=== PATIENT | male | born 1955 | race Caucasian/White ===

== ENCOUNTER 2019-09-06 21:15 | Emergency (ER) | payer MEDICARE, SELFPAY ==
[2019-09-06 21:21] VITALS: BP 156/76; PULSE 94; RESP 20; TEMP 36.7; O2SAT 93; BMI 39.1
--- NOTE | 2019-09-06 22:12 | W.ED.MALEGU ---
HPI - Male Genitourinary General: Chief complaint: Urogenital-Male Stated complaint: poss kidney infection Time Seen by Provider: 09/06/19 22:06 Source: patient Mode of arrival: ambulatory Limitations: no limitations History of Present Illness: HPI Narrative: Patient is a 64-year-old male who presents to ED today complaining that he believes he might have a kidney infection. He has been experiencing dysuria and urinary urgency over the past day. He states yesterday he began noticing acute onset left flank pain. He states he has been taking Azo and fish antibiotics for his symptoms. He does not have a history of kidney stones. He does tell me previously he has had a kidney infection. He has not been running fevers. He does not describe any nausea, vomiting, changes in bowel movements. MD Complaint: dysuria and other (flank pain) Onset (ago): day(s) (x yesterday ) Duration: constant Location: left flank Severity: moderate Quality: sharp and stabbing Relieving factors: none Exacerbating factors: urination Associated symptoms: Reports no associated symptoms and dysuria; Deny nausea, urinary incontinence or vomiting Review of Systems Const: Denies: fever, chills, body aches, fatigue or malaise Card: Denies: chest pain Resp: Denies: shortness of breath GI: Reports: abdominal pain (reports pain in L flank/back wraps around into abdomen ); Denies: nausea, vomiting or diarrhea : Reports: flank pain, painful urination and urinary urgency; Denies: difficulty urinating, urinary frequency, urinary hesitancy, urinary dribbling, difficulty starting urination, nighttime urination, decreased urine ouput, urinary incontinence, genital lesion, penile discharge or scrotal swelling Musc: Reports: back pain (L flank); Denies: neck pain Skin/Breast: Denies: rash, new lesion or changes in skin color Neuro: Denies: headache, numbness in extremities, weakness in extremities or changes in sensation PFSH ED PFSH: Social History Smoking and tobacco status: former smoker Physical Exam Const: COMMON NORMALS: no apparent distress, oriented x3, no limitations and alert NUTRITIONAL APPEARANCE: obese Resp: COMMON NORMALS: normal respiratory effort and clear to auscultation bilaterally AUSCULTATION: clear to auscultation bilaterally Cardio: COMMON NORMALS: regular rate and regular rhythm RATE: regular rate RHYTHM: regular rhythm GI: COMMON NORMALS: normal to inspection, nondistended, normoactive bowel sounds, soft to palpation, no hepatosplenomegaly and no masses PALPATION: Yes soft, Yes tender (L lower abdomen-reports wraps around from L flank/lower back) and Yes no hepatosplenomegaly : BLADDER/KIDNEY EXAM: Yes CVA tenderness on the left Back/Pelvis: GENERAL BACK: Yes CVA tenderness Extremity: COMMON NORMALS: normal to inspection Neuro: COMMON NORMALS: oriented x3 SENSORIUM/ORIENTATION: Yes alert Skin: COMMON NORMALS: no rashes or lesions noted GENERAL SKIN EXAM: no rashes or lesions noted Course Vital Signs: Vital signs: Vital Signs Temperature 98.1 F 09/06/19 21:21 Pulse Rate 88 09/06/19 23:29 Respiratory Rate 17 09/06/19 23:29 Blood Pressure 142/77 09/06/19 23:29 Pulse Oximetry 96 09/06/19 23:29 MDM - Male MDM Narrative: Medical decision making narrative: pt feels much better after IV meds; CT scan showing 5mm stone at L UVJ; UA is inhibited due to color interference from his AZO; will go ahead and err on the side of caution and place him on Cipro; will give urine strainer, pain meds/nausea meds/flomax, and have him follow up with urology; return to ED precautions given Lab Data: Labs: Lab Results 09/06/19 09/06/19 09/06/19 Range/Units 22:40 22:40 22:40 WBC 15.8 H (4.0-10.0) 10^3/ uL RBC 5.09 (4.1-5.3) 10^6/u L Hgb 14.1 (11.7-16.6) g/dL Hct 43.6 (42.0-52.0) % MCV 85.7 (80-94) fL MCH 27.7 L (28.0-34.0) pg MCHC 32.3 (30.0-36.0) g/dL RDW 13.7 (12.1-15.1) % Plt Count 185 (130-400) 10^3/c mm MPV 10.1 (7.4-10.4) fL Neut % (Auto) 82.2 % Lymph % (Auto) 7.7 % [place] % (Auto) 9.2 % Eos % (Auto) 0.1 % Baso % (Auto) 0.3 % Neut # (Auto) 13.0 H (1.8-7.7) 10^3/u L Lymph # (Auto) 1.2 (0.8-4.8) 10^3/u L [place] # (Auto) 1.5 H (0.2-0.9) 10^3/u L Eos # (Auto) 0.0 (0.0-0.8) 10^3/u L Baso # (Auto) 0.0 (0.0-0.1) 10^3/u L Nucleated RBC % (a uto) 0 % Nucleated RBCs # 0.0 /100WBC Sodium 137 (136-145) mmol/L Potassium 3.8 (3.5-5.1) mmol/L Chloride 100 (98-107) mmol/L Carbon Dioxide 24 (22-29) mmol/L Anion Gap 16.8 (5-19) BUN 18 (8-23) mg/dL Creatinine 1.2 (0.7-1.2) mg/dL GFR Calculation 61.1 L (90-130) mL/min Glucose 144 H (65-115) mg/dL Calculated Osmolal ity 283 L (285-295) mOsm/k g Calcium 9.5 (8.5-10.5) mg/dL Total Bilirubin 2.3 H (0.15-1.2) mg/dL AST 34 (0-40) U/L ALT 40 (0-41) U/L Alkaline Phosphata se 117 (40-130) IU/L Total Protein 7.1 (6.6-8.7) g/dL Albumin 4.1 (3.5-5.2) g/dL Globulin 3.0 (1.3-4.6) g/dL Urine Color [place] (Yellow) Urine Appearance Clear (CLEAR) Urine pH 5 (5-7) Ur Specific Gravit y 1.015 (1.005-1.030) Urine Protein Not tested (Negative) Urine Glucose (UA) Not tested (Normal) Urine Ketones Not tested H (Negative) Urine Blood Not tested A (Negative) Urine Nitrate Not tested A (Negative) Urine Bilirubin Not tested (NEGATIVE) Urine Urobilinogen Not tested A (Negative) mg/dL Ur Leukocyte Otilia ase Not tested A (Negative) Urine RBC 0-4 H (0-2) /hpf Urine WBC 25-40 H (0-5) /hpf Ur Squamous Epith Cells 0-4 H (0-5) Urine Bacteria 1+ H (NONE) Imaging Data: CT Abd/Pel: Radiologist's impression: [address] [address] [address] Scan Report Signed Patient: Olayinka Lee Unit #: [id number] : [id number] Age/Sex: 64 / M ADM Date: 09/06/19 Loc: ER Room/Bed: Attending Dr: Ordering Provider/Ordering MD: Mulu Sawyer Date of Service: 09/06/19 Procedure(s): CT kidney stone 28738 Accession Number(s): [id number] Report Number: [id number] PROCEDURE INFORMATION: Exam: CT Abdomen And Pelvis Without Contrast Exam date and time: 09/06/2019 10:43 PM Age: 64 years old Clinical indication: Abdominal pain; Flank; Left; Additional info: L flank pain TECHNIQUE: Imaging protocol: Computed tomography of the abdomen and pelvis without contrast. Total DLP: 1917.03 mGy-cm Radiation optimization: All CT scans at this facility use at least one of these dose optimization techniques: automated exposure control; mA and/or kV adjustment per patient size (includes targeted exams where dose is matched to clinical indication); or iterative reconstruction. COMPARISON: No relevant prior studies available. FINDINGS: Lungs: Mild left lower lobe atelectasis. Liver: Diffuse fatty infiltration of the liver. Gallbladder and bile ducts: Normal. No calcified stones. No ductal dilation. Pancreas: Normal. No ductal dilation. Spleen: Normal. No splenomegaly. Adrenals: Normal. No mass. Kidneys and ureters: 5 mm calculus at the left ureterovesical junction. Mild left hydronephrosis and perinephric stranding. The right kidney is normal. Stomach and bowel: Mild diverticulosis of the descending colon. No diverticulitis. Appendix: No evidence of appendicitis. Intraperitoneal space: Unremarkable. No free air. No significant fluid collection. Vasculature: Unremarkable. No abdominal aortic aneurysm. Lymph nodes: Unremarkable. No enlarged lymph nodes. Bladder: The urinary bladder is decompressed with mild wall thickening measuring up to 8 mm. Reproductive: Coarse calcifications in a small prostate. Bones/joints: Unremarkable. No acute fracture. Soft tissues: Fat containing left inguinal hernia. CT/CT kidney stone 30102 IMPRESSION: 1. 5 mm calculus at the left ureterovesical junction with mild left hydronephrosis. Radiation Dose CTDIVOL = (mGy): DLP = 1917.03 (mGy-cm) Dictated By: Martinez Hanks Signed By: Martinez Hanks Signed Date/Time: 09/06/192256 DD/ 55 Discharge Plan Discharge Patient Disposition: Home, Self-Care Clinical Impression: Calculus of distal left ureter Condition: Stable Prescriptions: New hydrocodone-acetaminophen 5-325 mg tablet 1 tab PO Q4H PRN (Reason: pain) Qty: 15 RF: 0 Zofran 4 mg tablet 4 mg PO Q6H PRN (Reason: nausea and vomiting) Qty: 14 RF: 0 Cipro 500 mg tablet 500 mg PO BID 7 Days Qty: 14 RF: 0 Flomax 0.4 mg capsule 0.4 mg PO DAILY Qty: 14 RF: 0 Discharge Orders: Discharge Order (Routine); Ordered 09/06/19 Ordered By: Mulu Sawyer Referrals: Hermelindo Bernstein MD [Physician] - Galileo Cavanaugh DO [Family Provider] - Discharge Diet: Usual diet Discharge Activity: Resume usual activity Patient Instructions: Kidney Stones, Kidney Stones (ED), How to Strain Your Urine (ED) Activity Restrictions/Additional Instructions: As discussed push fluids as much as possible. Strain your urine and bring stone with you to urology follow-up. Case management should contact you shortly to set you up with this appointment. Return to the emergency department immediately for worsening pain, inability to hold down your medications, repetitive nausea/vomiting, fevers greater than 100.4, generally feeling ill, or any other concerns you may have. Discharge Date/Time: 09/06/19 23:30 Coding Level of Care Code ED Coal Cutter for Chg Fwd Exam Detailed
--- NOTE | 2019-09-06 22:19 | CTR_ITS ---
PROCEDURE INFORMATION: Exam: CT Abdomen And Pelvis Without Contrast Exam date and time: 09/06/2019 10:43 PM Age: 64 years old Clinical indication: Abdominal pain; Flank; Left; Additional info: L flank pain TECHNIQUE: Imaging protocol: Computed tomography of the abdomen and pelvis without contrast. Total DLP: 1917.03 mGy-cm Radiation optimization: All CT scans at this facility use at least one of these dose optimization techniques: automated exposure control; mA and/or kV adjustment per patient size (includes targeted exams where dose is matched to clinical indication); or iterative reconstruction. COMPARISON: No relevant prior studies available. FINDINGS: Lungs: Mild left lower lobe atelectasis. Liver: Diffuse fatty infiltration of the liver. Gallbladder and bile ducts: Normal. No calcified stones. No ductal dilation. Pancreas: Normal. No ductal dilation. Spleen: Normal. No splenomegaly. Adrenals: Normal. No mass. Kidneys and ureters: 5 mm calculus at the left ureterovesical junction. Mild left hydronephrosis and perinephric stranding. The right kidney is normal. Stomach and bowel: Mild diverticulosis of the descending colon. No diverticulitis. Appendix: No evidence of appendicitis. Intraperitoneal space: Unremarkable. No free air. No significant fluid collection. Vasculature: Unremarkable. No abdominal aortic aneurysm. Lymph nodes: Unremarkable. No enlarged lymph nodes. Bladder: The urinary bladder is decompressed with mild wall thickening measuring up to 8 mm. Reproductive: Coarse calcifications in a small prostate. Bones/joints: Unremarkable. No acute fracture. Soft tissues: Fat containing left inguinal hernia. CT/CT kidney stone 33804 IMPRESSION: 1. 5 mm calculus at the left ureterovesical junction with mild left hydronephrosis. Radiation Dose CTDIVOL = (mGy): DLP = 1917.03 (mGy-cm)
[2019-09-06 22:45] LABS: Basophils % 0.3 %; Eosinophils % 0.1 %; Hematocrit 43.6 % (42.0-52.0); Hemoglobin 14.1 g/dL (11.7-16.6); Lymphocytes # 1.2 10^3/uL (0.8-4.8); Lymphocytes % 7.7 %; Mean Corpuscular HGB Conc 32.3 g/dL (30.0-36.0); Mean Corpuscular Hemoglobin 27.7 pg (28.0-34.0); Mean Corpuscular Volume 85.7 fL (80-94); Mean Platelet Volume 10.1 fL (7.4-10.4); Monocytes # 1.5 10^3/uL (0.2-0.9); Monocytes % 9.2 %; Neutrophils % 82.2 %; Nucleated Red Blood Cells % 0 %; Platelet Count 185 10^3/cmm (130-400); Red Blood Count 5.09 10^6/uL (4.1-5.3); Red Cell Distribution Width 13.7 % (12.1-15.1); White Blood Count 15.8 10^3/uL (4.0-10.0)
[2019-09-06] MEDS: ondansetron 2 mg/ML SDV 2 mL 4 MG IVP (22:47)
[2019-09-06] MEDS: ketorolac 60 mg/2 mL INJ 30 MG IVP (22:47)
[2019-09-06] MEDS: sodium chloride 0.9% 1,000 ML 999 ML IV (22:49)
[2019-09-06 23:03] VITALS: RESP 17; O2SAT 91
[2019-09-06] MEDS: morphine 4 mg/mL SDV 1 mL IVP (23:03)
[2019-09-06 23:07] LABS: Bilirubin Urine Not Tested (NEGATIVE); Blood Urine Not Tested (Negative); Glucose Urine UA Not Tested (Normal); Ketones Urine Not Tested (Negative); Nitrate Urine Not Tested (Negative); Protein Urine Not Tested (Negative); Specific Gravity, Urine 1.015 (1.005-1.030); Urine Appearance Clear (CLEAR); Urine Color Orange (Yellow); Urobilinogen Urine Not Tested mg/dL (Negative); pH Urine 5 (5-7)
[2019-09-06 23:08] LABS: Leukocyte Esterase Urine Not Tested (Negative)
[2019-09-06 23:09] LABS: Bacteria Urine 1+; RBC Urine 0-4 /hpf (0-2); Squamous Epithelial Cell Urine 0-4 (0-5); WBC Urine 25-40 /hpf (0-5)
[2019-09-06 23:12] LABS: Alanine Aminotransferase 40 U/L (0-41); Albumin Level 4.1 g/dL (3.5-5.2); Alkaline Phosphatase 117 IU/L (40-130); Anion Gap 16.8 (5-19); Aspartate Amino Transferase 34 U/L (0-40); Blood Urea Nitrogen 18 mg/dL (8-23); Calcium 9.5 mg/dL (8.5-10.5); Carbon Dioxide 24 mmol/L (22-29); Chloride 100 mmol/L (98-107); Glomerular Filtration Rate 61.1 mL/min (90-130); Glucose 144 mg/dL (65-115); Osmolality Calculated 283 mOsm/kg (285-295); Potassium 3.8 mmol/L (3.5-5.1); Sodium 137 mmol/L (136-145); Total Bilirubin 2.3 mg/dL (0.15-1.2); Total Protein 7.1 g/dL (6.6-8.7)
[2019-09-06 23:29] VITALS: BP 142/77; PULSE 88; RESP 17; O2SAT 96
--- NOTE | 2019-09-07 11:22 | DCPLANNER ---
manager utilization management had message to schedule a follow up appointment for patient with Dr. Bernstein. manager utilization management called the office of Dr. Bernstein, spoke with Vee, gave clinic patients information. manager utilization management was told that patients information would be printed and given to Mariana for review. Clinic will call patient with appointment information. manager utilization management will call for appointment information.
--- NOTE | 2019-09-08 09:21 | DCPLANNER ---
Patient had an appointment scheduled for 09.08.[address] Bernstein, patient did attend the appointment.
== END 2019-09-06 23:30 | disposition home or self-care (01) ==
PROVIDERS: Emergency Medicine; Emergency Provider Physician Assistant; Family Provider Electrodiagnostic Medicine
DX: N20.1 Calculus of ureter (principal); Z87.891 Personal history of nicotine dependence
CPT/HCPCS: 12345; 36415; 74176; 80053; 81001; 85025; 96361; 96374; 96375; 99282; 99284; J1885; J2270; J2405; J7030

== ENCOUNTER 2019-09-08 07:33 | Outpatient (CLI) | payer MEDICARE, SELFPAY ==
--- NOTE | 2019-09-07 13:18 | XR_ITS ---
WS: [id number] ABDOMEN KUB CLINICAL INFORMATION: Renal/ureteral calculi. COMPARISON: CT September 06, 2019 FINDINGS: 4 mm calculus at the left UVJ seen on the recent CT likely persistent today in the left pelvis. Numer ous pelvic phleboliths. XR/XR KUB 83009 Impression: 4 mm calculus at the left UVJ suspected to be persistent in the left pelvis isabell alicea
== END 2019-09-08 07:34 | disposition home or self-care (01) ==
LOC: RAD 07:39
PROVIDERS: Family Provider Electrodiagnostic Medicine; PCP Electrodiagnostic Medicine; Visit Provider Urology
DX: N20.1 Calculus of ureter (principal)
CPT/HCPCS: 74018; 81001

== ENCOUNTER 2019-09-22 08:15 | Outpatient (CLI) | payer MEDICARE, SELFPAY ==
--- NOTE | 2019-09-22 08:15 | XR_ITS ---
WS: [id number] XR KUB [id number] REASON FOR EXAM: ureteral calculus FINDINGS: In the left side of the bladder area is a calcified densities suggesting a small stone. The left kidney appears to be slightly denser of the right suggesting possibility of some degree of h ydronephrosis. There is no definite stones seen in the left kidney. XR/XR KUB 79021 IMPRESSION: Small stone appears to be evident in the bladder The left kidney is denser than the right suggesting low-grade hydronephrosis.
== END 2019-09-22 08:16 | disposition home or self-care (01) ==
LOC: RAD 08:19
PROVIDERS: Family Provider Electrodiagnostic Medicine; PCP Electrodiagnostic Medicine; Visit Provider Urology
DX: N20.1 Calculus of ureter (principal)
CPT/HCPCS: 74018; 81001; 82365

== ENCOUNTER 2021-03-08 20:03 | Emergency (ER) | payer MEDICARE, SELFPAY ==
[2021-03-08 20:59] VITALS: BP 172/73; PULSE 68; RESP 18; TEMP 36.7; O2SAT 98; BMI 37.6
--- NOTE | 2021-03-08 21:06 | XRR_ITS ---
PROCEDURE INFORMATION: Exam: XR Right Hand Exam date and time: 03/08/2021 9:06 PM Age: 65 years old Clinical indication: Patient HX: Right hand fifth digit pain; Additional info: Smashed pinky finger TECHNIQUE: Imaging protocol: XR Right hand. Views: 3 or more views. COMPARISON: No relevant prior studies available. FINDINGS: Bones/joints: No acute fracture or dislocation. Soft tissues: No radiopaque or radiolucent foreign body. XR/XR hand RT min 3V* [id number] IMPRESSION: 1. No acute fracture or dislocation. 2. No radiopaque or radiolucent foreign body. Radiation Dose CTDIVOL = (mGy): DLP = (mGy-cm)
[2021-03-08 21:30] VITALS: PULSE 79
--- NOTE | 2021-03-08 23:14 | ED_ITS ---
HPI - Extremity Problem General: Chief complaint: Extremity Injury, Upper Stated complaint: R Pinky Finger Injury\Laceration Time Seen by Provider: 03/08/21 23:02 History of Present Illness: HPI Narrative: Lacerated tip of pinky finger while working with a post. Complaint: extremity pain Onset (ago): hour(s) Pain Consistency: constant Location: right and upper extremity Severity scale (1-10): 3 Quality: aching Radiation: none Associated symptoms: Deny chest pain, fever(s) or rash Review of Systems Const: Denies: fever(s), chills or body aches Eyes: Denies: change in vision or blurry vision ENMT: Denies: throat pain or nasal congestion Card: Denies: chest pain or dyspnea on exertion Resp: Denies: dyspnea, productive cough or non-productive cough GI: Denies: abdominal pain, nausea or vomiting : Denies: difficulty urinating Musc: Denies: extremity pain Skin/Breast: Reports: other (Laceration to right pinky finger occurred today.); Denies: rash Neuro: Denies: headache(s) Psych: Denies: anxiety or depression Parish/Lymph: Denies: easy bruising PFS ED PFSH: Medical History (Updated 03/08/21 @ 23:51 by LINO Valles) Chronic back pain Hypertension Urethral stricture Surgical History H/O hernia repair H/O removal of cyst History of facial surgery Family History Father , 60 Diabetes Hypertension Stroke Mother No problems noted. Social History Smoking and tobacco status: former smoker Alcohol intake: current Alcohol intake frequency: holidays/special occasions only Marital status: Current occupational status: disabled History of recent travel: No Physical Exam Const: COMMON NORMALS: no acute distress Psych: COMMON NORMALS: mental status grossly normal Skin: OTHER: Stellate laceration to pad of right pinky finger. Tetanus is up-to-date. Procedures Laceration Laceration 1: Site: hand Side (If applicable): right Size (cm): 2 Description: flap, irregular and contaminated Depth: simple, single layer Local Anesthetic: lidocaine 1% Amount of anesthesia used (mL): 3 Pre-repair: wound explored, irrigated extensively and deep structures intact Skin layer closed with: other (Ethilon) Size (cm): 4-0 Number of sutures: 8 Technique: simple, interrupted Course Vital Signs: Vital signs: Vital Signs Temperature 98.1 F 03/08/21 20:59 Pulse Rate 68 03/08/21 20:59 Respiratory Rate 18 03/08/21 20:59 Blood Pressure 172/73 03/08/21 20:59 Pulse Oximetry 98 03/08/21 20:59 Discharge Plan Discharge Patient Disposition: Home Clinical Impression: Laceration of finger Qualifiers: Encounter type: initial encounter Finger: little finger Damage to nail status: without damage Foreign body presence: without foreign body Laterality: right Qualified Code(s): S61.216A - Laceration without foreign body of right little finger without damage to nail, initial encounter Condition: Stable Prescriptions: New cephalexin 500 mg capsule 500 mg PO Q8H 7 Days Qty: 21 RF: 0 No Action acetaminophen [Tylenol] 325 mg capsule 325 mg PO QID PRNRF: 0 Flomax 0.4 mg capsule 0.4 mg PO DAILY Qty: 30 RF: 0 hydrocodone-acetaminophen 5-325 mg tablet 1 tab PO Q4H PRN (Reason: pain) Qty: 15 RF: 0 Zofran 4 mg tablet 4 mg PO Q6H PRN (Reason: nausea and vomiting) Qty: 14 RF: 0 Discharge Orders: Discharge ED (Routine); Ordered 03/08/21 Ordered By: Mitchell Moran Discharge Diet: Usual diet Discharge Activity: Increase activity as tolerated Patient Instructions: Laceration (ED) Activity Restrictions/Additional Instructions: Follow-up with medical provider as directed. Take medications as prescribed. Return to the ER or your medical provider if condition worsens. Please read and understand discharge instructions. If any questions ask please. Have sutures removed in 7 days. You can follow-up here urgent care or your primary care to have sutures removed. Coding Level of Care Code ED Linux Kernel Developer for Christophe Aguilera Exam Expanded Problem Focused
[2021-03-09] MEDS: cephALEXin 500 mg Capsule PO (00:31)
[2021-03-09] MEDS: lidocaine 1% INJ 20 mL INTRADERMA (00:31)
--- NOTE | 2021-03-09 00:35 | PC.NURSE ---
Prior to suturing, right hand soaked in warm, soapy water for 15 minutes. Sutures placed by Mitchell AVENDANO, no further bleeding noted. Telfa, kerlix, and pressure dressing to finger.
[2021-03-09 00:45] VITALS: BP 144/78; PULSE 80; RESP 20; O2SAT 98
== END 2021-03-09 00:45 | disposition home or self-care (01) ==
PROVIDERS: Emergency Provider Nurse Practitioner Family
DX: S61.216A Laceration without foreign body of right little finger without damage to nail, initial encounter (principal); I10 Essential (primary) hypertension; Z87.891 Personal history of nicotine dependence; X58.XXXA Exposure to other specified factors, initial encounter
CPT/HCPCS: 12001; 73130; 96372; 99283

== ENCOUNTER → 2024-04-21 07:39 | Outpatient (BNVA) | payer MEDICARE, SELFPAY | PROVIDERS: Referring Provider Electrodiagnostic Medicine; Visit Provider Specialist | DX: G62.9 Polyneuropathy, unspecified (principal); G62.89 Other specified polyneuropathies | CPT/HCPCS: 95910 ==